=== PATIENT | male | born 1980 | race African-American/Black ===

== ENCOUNTER 2019-01-28 01:39 | Emergency (ER) | payer MEDICAID ==
[~2019-01-28] VITALS: Ht 182.9 cm; Wt 81.6 kg
[~2019-01-28 01:39] MED LIST: AMOX-263 PO; CHL12OR PO; TRAM50TA2 PO
[2019-01-28 01:43] VITALS: BP 137/96
[2019-01-28 02:09] LABS: Basophils # (auto) 0.1 uL; Basophils % (auto) 1.1 % (0.0-2.0); Eosinophils # (auto) 0.5 uL; Eosinophils % (auto) 8.3 % (0.0-7.0); Hematocrit 47.8 % (41.0-53.0); Hemoglobin 16.2 g/dL (13.5-17.5); Lymphocytes % (auto) 33.4 % (10.0-50.0); Mean Corpuscular Hemoglobin 30.3 pg (28.0-32.0); Mean Corpuscular Hgb Conc. 33.8 g/dL (32.0-36.0); Mean Corpuscular Volume 89.7 fL (80.0-100.0); Monocytes # (auto) 0.4 uL; Neutrophils % (auto) 50.2 % (37.0-80.0); Nucleated Red Blood Cells % 0.1 %; Platelet Count (auto) 279 10^3/uL (140-450); Red Blood Cells 5.33 10^6/uL (4.5-5.90); Red Cell Distribution Width 13.8 % (11.8-14.3)
[2019-01-28 02:54] LABS: Chloride 108 mmol/L (98-107); Potassium 3.6 mmol/L (3.5-5.1); Sodium 140 mmol/L (136-145)
[2019-01-28 03:03] LABS: Amphetamine Screen, Urine NEGATIVE (NEGATIVE); Barbiturate Scree,Urine NEGATIVE (NEGATIVE); Benzodiazephine Screen, Urine NEGATIVE (NEGATIVE); Cannabinoid Screen, Urine POSITIVE (NEGATIVE); Cocaine Screen, Urine NEGATIVE (NEGATIVE)
[2019-01-28 03:06] LABS: Alanine Aminotransferase 30 U/L (16-61); Aspartate Aminotransferase 20 U/L (15-37); Blood Urea Nitrogen 6 mg/dL (7-18); Calcium 8.4 mg/dL (8.5-10.1); Carbon Dioxide 21 mmol/L (21-32); GFR African American 129 mL/min; GFR Non-African American 106 mL/min; Glucose 82 mg/dL (74-106)
[2019-01-28 03:10] LABS: Alkaline Phosphatase 94 U/L (45-117); Bilirubin, Total 0.5 mg/dL (0.2-1.0)
[2019-01-28 03:12] LABS: Opiate Scree,Urine NEGATIVE (NEGATIVE); Phencyclidine Screen, Urine NEGATIVE (NEGATIVE)
[2019-01-28 03:27] LABS: Anion Gap 11 (5-15)
[2019-01-28 03:43] LABS: Blood Alcohol > 300.0 mg/dL (0-5)
== END 2019-01-28 02:30 | disposition left against medical advice (07) ==
LOC: EDBD 01:39 → ER 01:41
DX: R55 Syncope and collapse (principal); Z53.21 Procedure and treatment not carried out due to patient leaving prior to being seen by health care provider
CPT/HCPCS: 36415; 70450; 80053; 80307; 80320; 85025

== ENCOUNTER 2021-04-02 09:03 | Emergency (ER) | payer MEDICAID ==
[~2021-04-02] VITALS: Ht 177.8 cm; Wt 81.6 kg
[2021-04-02] MEDS ORDERED: HYDROcodone-ACET 10/325MG TAB PO ONE (12:00)
[2021-04-02 13:15] VITALS: BP 125/83
== END 2021-04-02 15:32 | disposition home or self-care (01) ==
LOC: ER 09:03 → EDBD 09:03 → ER 15:32
DX: S42.491A Other displaced fracture of lower end of right humerus, initial encounter for closed fracture (principal); F17.210 Nicotine dependence, cigarettes, uncomplicated; Z79.2 Long term (current) use of antibiotics; Z79.899 Other long term (current) drug therapy; X50.1XXA Overexertion from prolonged static or awkward postures, initial encounter; Y93.72 Activity, wrestling; Y92.89 Other specified places as the place of occurrence of the external cause; Y99.8 Other external cause status
CPT/HCPCS: 29105; 73070